=== PATIENT | male | born 1950 | race Caucasian/White ===

== ENCOUNTER 2016-10-17 09:39 | Inpatient (IN) | payer MEDICARE, OTHER ==
[2016-10-17] VITALS (16 sets, daily range): BP systolic 117–164; BP diastolic 60–90; PULSE 16–110; RESP 18–24; TEMP 97.7–98.8; O2SAT 88–95
[~2016-10-17] VITALS: Ht 190.5 cm; Wt 144.4 kg
[2016-10-17] MEDS ORDERED: SODIUM CHLORIDE 0.9% FLUSH 5 ML FLUSH IVF PRN ×2 (10:00)
[2016-10-17] MEDS ORDERED: NAPR220T95 PO (10:10)
[2016-10-17] MEDS ORDERED: ASPI81CH37 CHEW (10:10)
[2016-10-17] MEDS ORDERED: TELM40 PO (10:10)
[2016-10-17 10:41] LABS: AUTOMATED NEUTROPHIL # 5.1 TH/MM3 (1.8-7.7); BASOPHIL % 0.6 % (0.0-2.0); EOSINOPHIL # 0.2 TH/MM3 (0-0.4); EOSINOPHIL % 2.5 % (0.0-4.0); HEMATOCRIT 45.5 % (39.0-51.0); HEMO FLAGS DIFF FINAL; LYMPH % 11.7 % (9.0-44.0); LYMPHOCYTE # 0.8 TH/MM3 (1.0-4.8); MEAN CELL VOLUME 90.4 FL (80.0-100.0); MEAN CORPUSCULAR HEMOGLOBIN 31.1 PG (27.0-34.0); MEAN CORPUSCULAR HGB CONC 34.3 % (32.0-36.0); MONO % 10.1 % (0.0-8.0); NEUT % 75.1 % (16.0-70.0); PLATELET COUNT 188 TH/MM3 (150-450); RED BLOOD COUNT 5.03 MIL/MM3 (4.50-5.90); RED CELL DISTRIBUTION WIDTH 14.8 % (11.6-17.2); WHITE BLOOD COUNT 6.8 TH/MM3 (4.0-11.0)
[2016-10-17 10:42] LABS: APTT (PATIENT) 28.5 SEC (24.3-30.1); PROTHROMBIN TIME - PATIENT 11.6 SEC (9.8-11.6)
[2016-10-17 11:00] LABS: I-STAT POTASSIUM 4.6 MMOL/L (3.5-4.9)
--- NOTE | 2016-10-17 11:09 | PD ---
HPI Chief Complaint: Respiratory Symptoms Time Seen by Provider: 09:52 Travel History International Travel<30 days: No Contact w/Intl Traveler<30days: No Traveled to known affect area: No History of Present Illness HPI 65-year-old male presents emergency Department with progressive shortness of breath for the past month. Patient states he got fairly significant this morning a short of breath with only a few steps. Patient does have a history of knee replacement in June, his states that his been fairly sedentary since the surgery now that he is on fdc. Patient denies any cough fever symptoms denies any chest pain. Denies any leg swelling. Patient denies history of blood clots in his legs or his chest PFSH Past Medical History Diminished Hearing: No Hypertension: Yes Influenza Vaccination: Yes Social History Alcohol Use: No Tobacco Use: No Substance Use: No Allergies-Medications (Allergen,Severity, Reaction): Coded Allergies: No Known Allergies (Unverified , 10/17/16) Reported Meds & Prescriptions Reported Meds & Active Scripts Active Reported Micardis (Telmisartan) 40 Mg Tab 40 Mg PO DAILY Aleve (Naproxen Sodium) 220 Mg Tab 440 Mg PO BID PRN Aspirin Low Dose (Aspirin) 81 Mg Chew 81 Mg CHEW DAILY Review of Systems Except as stated in HPI: all other systems reviewed are Neg Physical Exam Narrative GENERAL: Well-developed well-nourished moderately short of breath. SKIN: Warm and dry. HEAD: Atraumatic. Normocephalic. EYES: Pupils equal and round. No scleral icterus. No injection or drainage. ENT: No nasal bleeding or discharge. Mucous membranes pink and moist. NECK: Trachea midline. No JVD. CARDIOVASCULAR: Regular rate and rhythm. No murmur appreciated. RESPIRATORY: No accessory muscle use. Clear to auscultation. Breath sounds equal bilaterally. Tachypneic. GASTROINTESTINAL: Abdomen soft, non-tender, nondistended. Hepatic and splenic margins not palpable. MUSCULOSKELETAL: No obvious deformities. No clubbing. No cyanosis. Patient has significant right-sided calf swelling as well as a vascular congestion color. There is good perfusion lower extremity. 2+ bilateral equal pulses in all 4 extremity's. NEUROLOGICAL: Awake and alert. No obvious cranial nerve deficits. Motor grossly within normal limits. Normal speech. PSYCHIATRIC: Appropriate mood and affect; insight and judgment normal. Data Data Last Documented VS Vital Signs Date Time Temp Pulse Resp B/P Pulse Ox O2 Delivery O2 Flow Rate FiO2 10/17/16 11:15 98 18 146/90 95 Nasal Cannula 2 10/17/16 10:05 97.7 Orders Electrocardiogram (10/17/16 09:59) Complete Blood Count With Diff (10/17/16 09:59) Comprehensive Metabolic Panel (10/17/16 09:59) Chest, Single Ap (10/17/16 09:59) Ecg Monitoring (10/17/16 09:59) Iv Access Insert/Monitor (10/17/16 09:59) Oximetry (10/17/16 09:59) Oxygen Administration (10/17/16 09:59) Sodium Chloride 0.9% Flush (Ns Flush) (10/17/16 10:00) Ckmb (Isoenzyme) Profile (10/17/16 09:59) Magnesium (Mg) (10/17/16 09:59) Prothrombin Time / Inr (Pt) (10/17/16 09:59) Act Partial Throm Time (Ptt) (10/17/16 09:59) Troponin I (10/17/16 09:59) Bilateral Bp Monitoring (10/17/16 09:59) Sodium Chloride 0.9% Flush (Ns Flush) (10/17/16 10:00) Ct Pulmonary Angiogram (10/17/16 09:59) Us Leg Venous Doppler (10/17/16 09:59) I-Stat Creatinine (10/17/16 10:38) I-Stat Profile (10/17/16 10:38) Iohexol 350 Inj (Omnipaque 350 Inj) (10/17/16 11:41) Admit Order (Ed Use Only) (10/17/16 ) Labs Laboratory Tests Test 10/17/16 10/17/16 10:05 10:45 White Blood Count 6.8 TH/MM3 Red Blood Count 5.03 MIL/MM3 Hemoglobin 15.6 GM/DL Hematocrit 45.5 % Mean Corpuscular Volume 90.4 FL Mean Corpuscular Hemoglobin 31.1 PG Mean Corpuscular Hemoglobin 34.3 % Concent Red Cell Distribution Width 14.8 % Platelet Count 188 TH/MM3 Mean Platelet Volume 9.5 FL Neutrophils (%) (Auto) 75.1 % Lymphocytes (%) (Auto) 11.7 % Monocytes (%) (Auto) 10.1 % Eosinophils (%) (Auto) 2.5 % Basophils (%) (Auto) 0.6 % Neutrophils # (Auto) 5.1 TH/MM3 Lymphocytes # (Auto) 0.8 TH/MM3 Monocytes # (Auto) 0.7 TH/MM3 Eosinophils # (Auto) 0.2 TH/MM3 Basophils # (Auto) 0.0 TH/MM3 CBC Comment DIFF FINAL Differential Comment Prothrombin Time 11.6 SEC Prothromb Time International 1.0 RATIO Ratio Activated Partial 28.5 SEC Thromboplast Time Sodium Level 137 MEQ/L Potassium Level 4.2 MEQ/L Chloride Level 103 MEQ/L Carbon Dioxide Level 23.6 MEQ/L Anion Gap 10 MEQ/L Blood Urea Nitrogen 23 MG/DL Creatinine 1.25 MG/DL Estimat Glomerular Filtration 58 ML/MIN Rate Random Glucose 200 MG/DL Calcium Level 8.5 MG/DL Magnesium Level 2.1 MG/DL Total Bilirubin 0.9 MG/DL Aspartate Amino Transf 18 U/L (AST/SGOT) Alanine Aminotransferase 35 U/L (ALT/SGPT) Alkaline Phosphatase 100 U/L Total Creatine Kinase 60 U/L Troponin I 0.06 NG/ML Total Protein 7.5 GM/DL Albumin 3.8 GM/DL Bedside Hemoglobin 15.0 G/DL Bedside Hematocrit 44.0 % Bedside Sodium 138 MMOL/L Bedside Potassium 4.6 MMOL/L Bedside Chloride 103 MMOL/L Bedside Blood Urea Nitrogen 23 MG/DL Bedside Creatinine 0.9 MG/DL Bedside Glucose 197 MG/DL [facility] Medical Decision Making Medical Screen Exam Complete: Yes Emergency Medical Condition: Yes Interpretation(s) EKG shows normal sinus rhythm with a normal axis and normal R-wave progression. There are ST depression in V5 and V6 without any elevations. There is no right heart strain pattern on this EKG. This an abnormal EKG. Differential Diagnosis Hypoxic respiratory failure, Pulmonary embolus, pneumonia, CHF, COPD. Narrative Course Patient 65-year-old male presents emergency department with cough high clinical suspicion for pulmonary embolism. Patient has had DVT study performed prior to having CT pulmonary was in which is positive. I-STAT creatinines were obtained to experience going to CAT scan as patient may need interventional radiology pending on the size of pulmonary embolism. Initial saturation of 88 on room air in the waiting room, he is up to 95 on 4 L nasal cannula. Critical Care Narrative Critical Care: The total critical care time was 35 minutes. Time to perform other separately billable procedures was not included in the critical care time. Time spent consulting radiology, interventional radiology, and manager operations and procurement. TPA was considered but risks outweigh benefits. Heparin dosing. Risks to patient is and disability. Diagnosis Primary Impression: Acute respiratory failure with hypoxia Additional Impressions: Pulmonary embolism Qualified Code: I26.92 - Acute saddle pulmonary embolism without acute cor pulmonale DVT (deep venous thrombosis) Qualified Code: I82.411 - Acute deep vein thrombosis (DVT) of femoral vein of right lower extremity Admitting Information Admitting Physician Requests: Admit Condition: Andres Woodson MD Oct 17, 2016 11:09
--- NOTE | 2016-10-17 11:17 | RADRPT ---
EXAM DATE/TIME: 10/17/2016 10:19 [facility] COMPARISON: No previous studies available for comparison. INDICATIONS : Pain and swelling in right lower extremity. MEDICAL HISTORY : Hypertension. Short of breath. SURGICAL HISTORY : Total knee replacement, right. ENCOUNTER: Initial ACUITY: 4 - 6 months PAIN SCORE: 5/10 LOCATION: Right leg. TECHNIQUE: Venous ultrasound of the leg was performed from the inguinal ligament to the proximal calf. Real-candida e, color Doppler and spectral tracing, compression and augmentation techniques were used. FINDINGS: There is acute appearing thrombus with enlarged veins at the right common femoral and right popliteal veins. The femoral vein and posterior tibial veins and greater saphenous vein are patent. CONCLUSION: Acute thrombus at the right common femoral and popliteal veins. This is nearly totally occlusive. Jax Fragoso MD on October 17, 2016 at 11:12 Board Certified Radiologist. This report was verified electronically.
--- NOTE | 2016-10-17 11:18 | RADRPT ---
EXAM DATE/TIME: 10/17/2016 10:56 [facility] COMPARISON: No previous studies available for comparison. INDICATIONS : Wheezing. Short of breath. MEDICAL HISTORY : None. SURGICAL HISTORY : None. ENCOUNTER: Initial ACUITY: 1 week PAIN SCORE: 0/10 LOCATION: Bilateral chest FINDINGS: A single view of the chest demonstrates the lungs to be symmetrically aerated without evidence of mas s, infiltrate or effusion. The cardiomediastinal contours are unremarkable. Osseous structures are intact. CONCLUSION: No acute disease. Jax Fragoso MD on October 17, 2016 at 11:16 Board Certified Radiologist. This report was verified electronically.
[2016-10-17 11:21] LABS: ALKALINE PHOSPHATASE 100 U/L (45-117); AST (GOT) 18 U/L (15-37); BLOOD UREA NITROGEN 23 MG/DL (7-18); GLOMERULAR FILTRATION RATE 58 ML/MIN (>89); MAGNESIUM 2.1 MG/DL (1.5-2.5)
[2016-10-17 11:22] LABS: ALT (GPT) 35 U/L (12-78); ANION GAP 10 MEQ/L (5-15); BICARBONATE 23.6 MEQ/L (21.0-32.0); CHLORIDE 103 MEQ/L (98-107); CREATINE KINASE 60 U/L (39-308); POTASSIUM 4.2 MEQ/L (3.5-5.1); SODIUM (NA) 137 MEQ/L (136-145); TOTAL BILIRUBIN ADULT 0.9 MG/DL (0.2-1.0)
[2016-10-17] MEDS ORDERED: IOHEXOL 350 MG/ML 10 ML VIAL (for RAD DIAG) IV ONE (11:41)
--- NOTE | 2016-10-17 11:55 | RADRPT ---
EXAM DATE/TIME: 10/17/2016 11:19 [facility] COMPARISON: No previous studies available for comparison. INDICATIONS : Dyspnea and decreased oxygen saturation IV CONTRAST: 66 cc Omnipaque 350 (iohexol) IV RADIATION DOSE: 23.28 CTDIvol (mGy) MEDICAL HISTORY : Hypertension. SURGICAL HISTORY : Total knee replacement, right. ENCOUNTER: Initial ACUITY: 1 day PAIN SCALE: 0/10 LOCATION: chest TECHNIQUE: Volumetric scanning of the chest was performed using a pulmonary embolism protocol MIP images were re constructed. Using automated exposure control and adjustment of the mA and/or kV according to patien t size, radiation dose was kept as low as reasonably achievable to obtain optimal diagnostic quality images. FINDINGS: There is fairly extensive thrombus identified in the pulmonary arteries bilaterally. This includes c entral embolus seen at the distal bifurcation of the main pulmonary artery. The thrombus appears more prominent in the right side extending to areas involving the right upper lobe, right middle lobe and right lower lobe. Ther e is some thrombus seen in the left upper lobe and left lower lobes although the thrombus burden is less on the left than the right. The lungs are grossly clear. Mediastinal structures are grossly intact. CONCLUSION: Fairly extensive pulmonary emboli. Jax Fragoso MD on October 17, 2016 at 11:46 Board Certified Radiologist. This report was verified electronically.
[2016-10-17] MEDS ORDERED: POTASSIUM CHLOR 40 MEQ PREMIX 100 ML IV PRN ×2 (12:30)
[2016-10-17] MEDS ORDERED: MAGNESIUM SULFATE INJ 4 GM in SODIUM CHLORIDE 0.9% INJ 92 ML IV PRN (12:30)
[2016-10-17] MEDS ORDERED: SODIUM CHLORIDE 0.9% FLUSH 5 ML FLUSH IV FLUSH PRN (12:30)
[2016-10-17] MEDS ORDERED: POTASSIUM CHLOR 20 MEQ PREMIX 100 ML IV PRN ×2 (12:30)
[2016-10-17] MEDS ORDERED: GLUCAGON 1 MG/ML VIAL OTHER PRN (12:30)
[2016-10-17] MEDS ORDERED: SODIUM PHOSPHATE INJ 30 MMOL in SODIUM CHLOR 0.9% 250 ML INJ 240 ML IV PRN (12:30)
[2016-10-17] MEDS ORDERED: RESP: ALBUTEROL 2.5 MG/IPRATROPIUM 0.5 MG NEB (PRN) INH (12:30)
[2016-10-17] MEDS ORDERED: CHLORHEXIDINE GLUCONATE 2 % 1 PACK (2 CLOTHS) TOP PRN (12:30)
[2016-10-17] MEDS ORDERED: MAGNESIUM SULFATE INJ 2 GM in SODIUM CHLORIDE 0.9% INJ 96 ML IV PRN (12:30)
[2016-10-17] MEDS ORDERED: MAGNESIUM OXIDE 400 MG TAB PO PRN (12:30)
[2016-10-17] MEDS ORDERED: POTASSIUM PHOSPHATE MONOBASIC 500 MG TAB PO PRN (12:30)
[2016-10-17] MEDS ORDERED: DEXTROSE 50% IN WATER 50 ML VIAL(D50) IV PUSH PRN (12:30)
[2016-10-17] MEDS ORDERED: MISCELLANEOUS NURSING INFORMATION XX SCH (12:30)
[2016-10-17] MEDS ORDERED: POTASSIUM PHOSPHATE MONOBASIC 500 MG TAB PO/TUBE PRN (12:30)
[2016-10-17] MEDS ORDERED: POTASSIUM PHOSPHATE INJ 30 MMOL in SODIUM CHLOR 0.9% 250 ML INJ 250 ML IV PRN (12:30)
[2016-10-17] MEDS ORDERED: ONDANSETRON HCL 4 MG/2 ML VIAL IV PRN (12:30)
[2016-10-17] MEDS ORDERED: ACETAMINOPHEN 325 MG TAB PO PRN (12:30)
[2016-10-17] MEDS ORDERED: HEPARIN SODIUM - IV 10,000 UNITS/10 ML VIAL IV ONE ×2 (12:30→12:45)
--- NOTE | 2016-10-17 12:36 | HHI.HP ---
HPI Service Critical Care Medicine Primary Care Physician Non-Staff Admission Diagnosis Saddle Pulmonary Embolism, DVT Diagnosis: Travel History International Travel<30 Days: No Contact w/Intl Traveler <30 Da: No Traveled to Known Affected Are: No History of Present Illness 65-year-old male that presented to the ED with progressive dyspnea. for the past month. The patient is S/P right total knee arthroplasty June 2016. At that point in time, the patient was prescribed and instructed to take 325 mg aspirin twice a day which he complied with until August 2016. In August 2016 , the patient began his normal regimen of 81 mg aspirin daily. The patient subsequently went on a few long car trips September 2016 to [place] and [facility], and has a sedentary lifestyle in [place]. The patient was noted to begin to have symptoms at that time post traveling which has progressively worsened early this a.m.. The patient presented to an outpatient emergency center and then was sent to [facility] ED. The patient was noted to be dyspneic with a room air O2 sat of 88%, O2 saturation improved with 2 L nasal cannula to 9596%. The patient was hemodynamically stable SBP 140's. Imaging studies were performed ultrasound revealing a right common femoral and popliteal nearly totally occlusive DVT's. CT PE protocol was noted fairly extensive thrombosis bilateral pulmonary arteries with central embolus right upper,right middle and right lower lobe ,as well as left upper and and lower lobes, left greater than right. The patient's respiratory status progressively worsened requiring him to present to an emergency room the patient has remained hemodynamically stable , no accessory muscle use ,no dyspnea on 2 L nasal cannula with O2 saturation 95 %. Interventional radiology was consult by , and due to the bilateral presentation of pulmonary embolus no intervention was considered. Critical care medicine is consult for management and treatment of bilateral pulmonary embolus. History PFSH Past Medical History Diminished Hearing: No Hypertension: Yes Influenza Vaccination: Yes Social History Alcohol Use: No Tobacco Use: No Substance Use: No Allergies-Medications Allergies-Medications (Allergen,Severity, Reaction): Coded Allergies: No Known Allergies (Unverified , 10/17/16) Reported Meds & Prescriptions Reported Meds & Active Scripts Active Reported Micardis (Telmisartan) 40 Mg Tab 40 Mg PO DAILY Aleve (Naproxen Sodium) 220 Mg Tab 440 Mg PO BID PRN Aspirin Low Dose (Aspirin) 81 Mg Chew 81 Mg CHEW DAILY ROS Review of Systems Except as stated in HPI: all other systems reviewed are Neg Past Family Social History Allergies: Coded Allergies: No Known Allergies (Unverified , 10/17/16) Physical Exam Vital Signs Vital Signs Date Time Temp Pulse Resp B/P Pulse Ox O2 Delivery O2 Flow Rate FiO2 10/17/16 11:15 98 18 146/90 95 Nasal Cannula 2 10/17/16 11:09 142/66 10/17/16 11:08 132/60 10/17/16 10:13 100 22 134/84 94 Nasal Cannula 3 139/84 10/17/16 10:05 97.7 98 22 143/85 94 Nasal Cannula 2 10/17/16 10:05 94 Nasal Cannula 2 10/17/16 09:58 100 22 92 Nasal Cannula 3 10/17/16 09:50 97.7 100 24 143/85 88 10/17/16 09:44 110 22 164/79 88 Room Air Physical Exam GENERAL: Well-developed well-nourished obese male, currently on 2 L nasal cannula in no acute distress SKIN: Warm and dry. HEAD: Atraumatic. Normocephalic. EYES: Pupils equal and round. No scleral icterus. No injection or drainage. ENT: No nasal bleeding or discharge. Mucous membranes pink and moist. NECK: Trachea midline. No JVD. CARDIOVASCULAR: Normal rate, regular rhythm. RESPIRATORY: No accessory muscle use. Clear to auscultation. Breath sounds equal bilaterally. GASTROINTESTINAL: Abdomen soft, protuberant, non-tender, nondistended. No guarding. MUSCULOSKELETAL: Extremities without clubbing, cyanosis, or edema. No obvious deformities. NEUROLOGICAL: Awake and alert. RASS 0. No gross focal/sensory deficits. Follows commands in all 4 extremities. Laboratory Laboratory Tests Test 10/17/16 10/17/16 10:05 10:45 White Blood Count 6.8 Red Blood Count 5.03 Hemoglobin 15.6 Hematocrit 45.5 Mean Corpuscular Volume 90.4 Mean Corpuscular Hemoglobin 31.1 Mean Corpuscular Hemoglobin 34.3 Concent Red Cell Distribution Width 14.8 Platelet Count 188 Mean Platelet Volume 9.5 Neutrophils (%) (Auto) 75.1 Lymphocytes (%) (Auto) 11.7 Monocytes (%) (Auto) 10.1 Eosinophils (%) (Auto) 2.5 Basophils (%) (Auto) 0.6 Neutrophils # (Auto) 5.1 Lymphocytes # (Auto) 0.8 Monocytes # (Auto) 0.7 Eosinophils # (Auto) 0.2 Basophils # (Auto) 0.0 CBC Comment DIFF FINAL Differential Comment Prothrombin Time 11.6 Prothromb Time International 1.0 Ratio Activated Partial 28.5 Thromboplast Time Sodium Level 137 Potassium Level 4.2 Chloride Level 103 Carbon Dioxide Level 23.6 Anion Gap 10 Blood Urea Nitrogen 23 Creatinine 1.25 Estimat Glomerular Filtration 58 Rate Random Glucose 200 Calcium Level 8.5 Magnesium Level 2.1 Total Bilirubin 0.9 Aspartate Amino Transf 18 (AST/SGOT) Alanine Aminotransferase 35 (ALT/SGPT) Alkaline Phosphatase 100 Total Creatine Kinase 60 Troponin I 0.06 Total Protein 7.5 Albumin 3.8 Bedside Hemoglobin 15.0 Bedside Hematocrit 44.0 Bedside Sodium 138 Bedside Potassium 4.6 Bedside Chloride 103 Bedside Blood Urea Nitrogen 23 Bedside Creatinine 0.9 Bedside Glucose 197 Result Diagram: 10/17/16 1005 10/17/16 1005 Imaging Last Impressions Lower Extremity Ultrasound 10/17/16958 Signed Impressions: Service Date/Time: Monday, October 17, 2016 10:19 - CONCLUSION: Acute thrombus at the right common femoral and popliteal veins. This is nearly totally occlusive. Jax Fragoso MD Chest X-Ray 10/17/16958 Signed Impressions: Service Date/Time: Monday, October 17, 2016 10:56 - CONCLUSION: No acute disease. Jax Fragoso MD CT Angiography 10/17/1620 Signed Impressions: Service Date/Time: Monday, October 17, 2016 11:19 - CONCLUSION: Fairly extensive pulmonary emboli. Jax Fragoso MD Septic Shock Reassessment Peripheral Pulses: Bounding Right Radial Bounding Left Radial Bounding Right Dorsalis Pedis Bounding Left Dorsalis Pedis Capillary Refill: Brisk Assessment and Plan Assessment and Plan Plan by systems: Neurologic: Pain Status post right total knee arthroplasty-acetaminophen 650 mg 6 hours when necessary Neurochecks per ICU protocol Respiratory: Bilateral pulmonary embolus CT PEfairly extensive thrombus pulmonary arteries bilateral. Includes central embolus right upper and right middle right lower lobe. Thrombus left upper and left lower lobe left greater than right. Begin heparin load 10,000 units, IV begin heparin infusion 18 units/kilogram/ hourPE protocol Monitor PTT per PE protocol Cardiovascular: Maintain MAP > 65 mmHg greater than 65 Obtain stat echocardiogram Normotensive systolic blood pressure 140s Obtain repeat EKG Renal: -- Strict I/Os FEN/GI: Monitor BMP Heart healthy diet Bowel regimen Heme/ID: Monitor CBC Endocrine: Sliding-scale insulin per ICU protocol -- SSI Prophylaxis: GI Prophylaxis Pepcid twice a day DVT Prophylaxis -- No SCDs Heparin infusion Lines: Peripheral IVs 2. Central line if indicated Dispo: my billing statement This patient remains critically ill with one or more organ systems which are or may become a threat to life. I have spent in excess of 51 minutes discontinuously in the care and management of this patient. This time is exclusive of procedures, and includes, but is not limited to, evaluation of the patient, review of the medical record, discussions with family, consultants, nursing staff, or respiratory therapy, and documentation in the medical record. Code Status Full Discussed Condition With Patient, patient's , MANNEQUIN MOLDER at bedside Marcelina Gupta MD Oct 17, 2016 12:36
[2016-10-17] MEDS: HEPARIN-D5W INJ 250 ML IV SCH ×2 (12:54→14:03)
[2016-10-17] MEDS: SODIUM CHLOR 0.9% 1000 ML INJ 1,000 ML IV SCH (13:56)
[2016-10-17] MEDS: INSULIN NovoLIN REGULAR SUPPLEMENTAL SCALE SQ SCH ×2 (16:00→22:13)
[2016-10-17] MEDS ORDERED: HEPARIN SODIUM - IV 10,000 UNITS/10 ML VIAL IV PRN (18:30)
[2016-10-17] MEDS ORDERED: SODIUM CHLORIDE 0.9% FLUSH 5 ML FLUSH IV FLUSH SCH (21:00)
--- NOTE | 2016-10-17 22:00 | EC ---
Study Study Date:10/17/2016 STUDY CONCLUSIONS SUMMARY - Left ventricle: The cavity size was normal. Wall thickness was increased in a pattern of mild LVH. Systolic function was normal. The estimated ejection fraction was 55%. Wall motion was normal; there were no regional wall motion abnormalities. - Right ventricle: The cavity size was moderately dilated. Wall thickness was increased. - Tricuspid valve: Mild regurgitation. If LV function is below 40, please consider prescribing an ACEI or ARB or document rationale for non-use. PROCEDURE DATA STUDY STATUS: Elective. Procedure: Transthoracic echocardiography. Image quality was good. Scanning was performed from the parasternal, apical, and subcostal acoustic windows. Study completion: The patient tolerated the procedure well. Transthoracic echocardiography. M-mode, complete 2D, complete spectral Doppler, and color Doppler. Patient status: Inpatient. CARDIAC ANATOMY LEFT VENTRICLE: The cavity size was normal. Wall thickness was increased in a pattern of mild LVH. Systolic function was normal. The estimated ejection fraction was 55%. Wall motion was normal; there were no regional wall motion abnormalities. AORTIC VALVE: Trileaflet; normal thickness leaflets. Doppler: Transvalvular velocity was within the normal range. There was no stenosis. No regurgitation. AORTA: Aortic root: The aortic root was normal in size. MITRAL VALVE: Structurally normal valve. Doppler: Transvalvular velocity was within the normal range. There was no evidence for stenosis. No regurgitation. LEFT ATRIUM: The atrium was normal in size. RIGHT VENTRICLE: The cavity size was moderately dilated. Wall thickness was increased. PULMONIC VALVE: Doppler: Transvalvular velocity was within the normal range. There was no evidence for stenosis. No regurgitation. TRICUSPID VALVE: Structurally normal valve. Doppler: Transvalvular velocity was within the normal range. Mild regurgitation. PULMONARY ARTERY: The main pulmonary artery was normal-sized. Systolic pressure was within the normal range. RIGHT ATRIUM: The atrium was normal in size. PERICARDIUM: There was no pericardial effusion. SYSTEMIC VEINS: Inferior vena cava: The vessel was normal in size. BASIC MEASUREMENTS ADULT Normal Left ventricle LV internal dimension, ED, chordal level, *42.9 mm 43-52 PLAX LV internal dimension, ES, chordal level, 32.7 mm 23-38 PLAX Fractional shortening, chordal level, PLAX *24 % >29 LV posterior wall thickness, ED 8.42 mm IVS/LVPW ratio, ED *1.66 <1.3 Ventricular septum Septal thickness, ED 14 mm Aortic valve Leaflet separation 22 mm 15-26 Left atrium Anterior-posterior dimension 34 mm Right ventricle RV internal dimension, ED, PLAX 34.1 mm 19-38 BASIC MEASUREMENTS ADULT Normal Aortic valve Leaflet separation 22 mm 15-26 Aorta Root diameter, ED 34 mm 20-37 DOPPLER MEASUREMENTS ADULT Normal Mitral valve Peak E-wave velocity 54.3 cm/s Peak A-wave velocity 70.1 cm/s Peak E/A ratio 0.8 Tricuspid valve Regurgitant peak velocity 289 cm/s Peak RV-RA gradient, S 33 mm Hg Maximal regurgitant velocity 289 cm/s LEGEND: Mean values are shown as u=mean value. Asterisk (*) del rosario values outside specified normal range. Prepared and signed by Nabeel Macias [id number]
[2016-10-17] MEDS: DOCUSATE SODIUM 50 MG/SENNA 8.6 MG TAB PO SCH (22:07)
[2016-10-17] MEDS: FAMOTIDINE 20 MG TAB PO SCH (22:08)
[2016-10-18] VITALS (14 sets, daily range): BP systolic 121–150; BP diastolic 65–86; PULSE 64–93; RESP 15–24; TEMP 97.9–98.8; O2SAT 93–96
[2016-10-18] MEDS: HEPARIN-D5W INJ 250 ML IV SCH ×2 (00:20→18:08)
[2016-10-18 01:08] LABS: APTT (PATIENT) 39.7 SEC (24.3-30.1)
[2016-10-18] MEDS: RESP: ALBUTEROL 2.5 MG/IPRATROPIUM 0.5 MG NEB (SCH) INH ×4 (03:26→21:32)
[2016-10-18] MEDS: CHLORHEXIDINE GLUCONATE 2 % 1 PACK (2 CLOTHS) TOP SCH (04:00)
[2016-10-18] MEDS: INSULIN NovoLIN REGULAR SUPPLEMENTAL SCALE SQ SCH ×4 (07:25→20:26)
[2016-10-18] MEDS: FAMOTIDINE 20 MG TAB PO SCH ×2 (08:00→20:26)
[2016-10-18] MEDS: DOCUSATE SODIUM 50 MG/SENNA 8.6 MG TAB PO SCH ×2 (08:00→20:26)
[2016-10-18] MEDS: SODIUM CHLOR 0.9% 1000 ML INJ 1,000 ML IV SCH (08:01)
[2016-10-18 09:25] LABS: APTT (PATIENT) 40.6 SEC (24.3-30.1)
--- NOTE | 2016-10-18 11:10 | HHI.CCPN ---
Subjective Remarks/Hospital Course 65-year-old male that presented to the ED with progressive dyspnea. for the past month. The patient is S/P right total knee arthroplasty June 2016. At that point in time, the patient was prescribed and instructed to take 325 mg aspirin twice a day which he complied with until August 2016. In August 2016 , the patient began his normal regimen of 81 mg aspirin daily. The patient subsequently went on a few long car trips September 2016 to [facility] and [facility], and has a sedentary lifestyle in [place]. The patient was noted to begin to have symptoms at that time post traveling which has progressively worsened early this a.m.. The patient presented to an outpatient emergency center and then was sent to [facility] ED. The patient was noted to be dyspneic with a room air O2 sat of 88%, O2 saturation improved with 2 L nasal cannula to 9596%. The patient was hemodynamically stable SBP 140's. Imaging studies were performed ultrasound revealing a right common femoral and popliteal nearly totally occlusive DVT's. CT PE protocol was noted fairly extensive thrombosis bilateral pulmonary arteries with central embolus right upper,right middle and right lower lobe ,as well as left upper and and lower lobes, left greater than right. The patient's respiratory status progressively worsened requiring him to present to an emergency room the patient has remained hemodynamically stable , no accessory muscle use ,no dyspnea on 2 L nasal cannula with O2 saturation 95 %. Interventional radiology was consult by , and due to the bilateral presentation of pulmonary embolus no intervention was considered. Critical care medicine is consult for management and treatment of bilateral pulmonary embolus. Subjective: 10/18: No issues overnight. Systolic blood pressure remained in the 130s to 140s. Heart rate in the 70s. Troponin level during the evening was noted to be increased from 0.062 0.10. BNP was obtained 231. Echo was performed ejection fraction 55%, the RV was moderately dilated tricuspid valves was noted to have mild regurgitation. Discussed with patient the risk and benefits for low-dose TPA at this time, to include the risk of hemorrhage and bleeding/ hemorrhage approximately 7%. The patient's major surgery was of right total knee arthroplasty done in June 2016, other major surgeries since then. Patient denies any risks/history or trauma for bleeding. Tentative plan to initiate low-dose TPA. Objective Vital Signs Date Time Temp Pulse Resp B/P Pulse Ox O2 Delivery O2 Flow Rate FiO2 10/18/16 10:00 92 10/18/16 09:42 96 Nasal Cannula 3.00 10/18/16 08:00 98.0 18 128/82 Intake and Output 10/17/16 10/17/16 10/18/16 08:00 16:00 00:00 Intake Total 535 ml 756 ml Output Total 700 ml 600 ml Balance -165 ml 156 ml Result Diagram: 10/17/16 1005 10/17/16 1005 Imaging Last Impressions Lower Extremity Ultrasound 10/17/16958 Signed Impressions: Service Date/Time: Monday, October 17, 2016 10:19 - CONCLUSION: Acute thrombus at the right common femoral and popliteal veins. This is nearly totally occlusive. Jax Fragoso MD Chest X-Ray 10/17/16958 Signed Impressions: Service Date/Time: Monday, October 17, 2016 10:56 - CONCLUSION: No acute disease. Jax Fragoso MD CT Angiography 10/17/16958 Signed Impressions: Service Date/Time: Monday, October 17, 2016 11:19 - CONCLUSION: Fairly extensive pulmonary emboli. Jax Fragoso MD Objective Remarks GENERAL: Well-developed well-nourished obese male, currently on 2 L nasal cannula in no acute distress SKIN: Warm and dry. HEAD: Atraumatic. Normocephalic. EYES: Pupils equal and round. No scleral icterus. No injection or drainage. ENT: No nasal bleeding or discharge. Mucous membranes pink and moist. NECK: Trachea midline. No JVD. CARDIOVASCULAR: Normal rate, regular rhythm. RESPIRATORY: No accessory muscle use. Clear to auscultation. Breath sounds equal bilaterally. GASTROINTESTINAL: Abdomen soft, protuberant, non-tender, nondistended. No guarding. MUSCULOSKELETAL: Extremities without clubbing, cyanosis, or edema. No obvious deformities. NEUROLOGICAL: Awake and alert. RASS 0. No gross focal/sensory deficits. Follows commands in all 4 extremities. A/P Assessment and Plan Plan by systems: Neurologic: Pain Status post right total knee arthroplasty-acetaminophen 650 mg 6 hours when necessary Neurochecks per ICU protocol Respiratory: Bilateral pulmonary embolus CT PEfairly extensive thrombus pulmonary arteries bilateral. Includes central embolus right upper and right middle right lower lobe. Thrombus left upper and left lower lobe left greater than right. Begin heparin load 10,000 units, IV begin heparin infusion 18 units/kilogram/ hourPE protocol Monitor PTT per PE protocol 10/18-will initiate low-dose TPA 10 mg bolus followed by 40 mg. Will decrease current heparin infusion to 1000 units per hour, and continue to monitor per PTT /heparin protocol Cardiovascular: Maintain MAP > 65 mmHg greater than 65 Obtain stat echocardiogram Normotensive systolic blood pressure 130s Echo 10/17-ejection fraction 55% RV mildly dilated tricuspid valve mild regurgitation, Renal: -- Strict I/Os FEN/GI: Monitor BMP Heart healthy diet Bowel regimen Heme/ID: Monitor CBC Endocrine: Sliding-scale insulin per ICU protocol -- SSI Prophylaxis: GI Prophylaxis Pepcid twice a day DVT Prophylaxis -- No SCDs Heparin infusion Lines: Peripheral IVs 2. Central line if indicated Dispo: Extensive discussion with patient regarding absolute contraindications, relative contraindications were thoroughly explored and denied. Risk and benefits were discussed with the patient and his . The patient has made a decision to proceed with low-dose tPA at this time. The patient will have heparin infusion decreased to 1000 units an hour at the initiation of TPA. He will receive TPA 10 mg over 1 minute, followed by 40 mg over 2 hours concurrently with heparin infusion at 1000 units an hour. The patient will then repeat follow the heparin PTT protocol. APTT will be obtained 6 hours post TPA administration and continued PTT/ Heparin protocol. The plan is for transition to Coumadin via pharmacy consultation post 48 hours of tPA administration. I also notified [facility],(patient's surgeon) Dr. Alonzo Mullins [phone]. my billing statement This patient remains critically ill with one or more organ systems which are or may become a threat to life. I have spent in excess of 47 minutes discontinuously in the care and management of this patient. This time is exclusive of procedures, and includes, but is not limited to, evaluation of the patient, review of the medical record, discussions with family, consultants, nursing staff, or respiratory therapy, and documentation in the medical record. Physician Marcelina Couch MD Oct 18, 2016 11:10
[2016-10-18] MEDS ORDERED: ALTEPLASE DRIP IV ONE (12:30)
[2016-10-18] MEDS ORDERED: ALTEPLASE IV ONE (12:30)
--- NOTE | 2016-10-18 14:04 | EKG ---
Date Performed: 10/17/2016 Time Performed: 15:34:16 PTAGE: 65 years EKG: Sinus rhythm POSSIBLE ANTEROLATERAL MYOCARDIAL INFARCTION , OF INDETERMINATE AGE ABNORMAL ECG PREVIOUS TRACING : 10/17/2016 10.04 DOCTOR: Toni Zazueta Interpretating Date/Time 10/18/2016 13:57:08
--- NOTE | 2016-10-18 14:12 | EKG ---
Date Performed: 10/17/2016 Time Performed: 10:04:41 PTAGE: 65 years EKG: Sinus rhythm NONSPECIFIC ST & T-WAVE ABNORMALITY ABNORMAL ECG NO PREVIOUS TRACING DOCTOR: Toni Zazueta Interpretating Date/Time 10/18/2016 14:02:18
[2016-10-18 21:16] LABS: APTT (PATIENT) 29.4 SEC (24.3-30.1)
[2016-10-18] MEDS: HEPARIN SODIUM - IV 10,000 UNITS/10 ML VIAL IV PRN (21:25)
[2016-10-19] VITALS (7 sets, daily range): BP systolic 138–147; BP diastolic 78–83; PULSE 65–99; RESP 18–24; TEMP 97.4–98.4; O2SAT 92–94
--- NOTE | 2016-10-19 01:37 | HHI.CCPN ---
Subjective Remarks/Hospital Course 65-year-old male that presented to the ED with progressive dyspnea. for the past month. The patient is S/P right total knee arthroplasty June 2016. At that point in time, the patient was prescribed and instructed to take 325 mg aspirin twice a day which he complied with until August 2016. In August 2016 , the patient began his normal regimen of 81 mg aspirin daily. The patient subsequently went on a few long car trips September 2016 to [place] and [facility], and [place] The patient was noted to begin to have symptoms at that time post traveling which has progressively worsened early this a.m.. The patient presented to an outpatient emergency center and then was sent to [place] ED. The patient was noted to be dyspneic with a room air O2 sat of 88%, O2 saturation improved with 2 L nasal cannula to 9596%. The patient was hemodynamically stable SBP 140's. Imaging studies were performed ultrasound revealing a right common femoral and popliteal nearly totally occlusive DVT's. CT PE protocol was noted fairly extensive thrombosis bilateral pulmonary arteries with central embolus right upper,right middle and right lower lobe ,as well as left upper and and lower lobes, left greater than right. The patient's respiratory status progressively worsened requiring him to present to an emergency room the patient has remained hemodynamically stable , no accessory muscle use ,no dyspnea on 2 L nasal cannula with O2 saturation 95 %. Interventional radiology was consult by , and due to the bilateral presentation of pulmonary embolus no intervention was considered. Critical care medicine is consult for management and treatment of bilateral pulmonary embolus. Subjective: 10/18: No issues overnight. Systolic blood pressure remained in the 130s to 140s. Heart rate in the 70s. Troponin level during the evening was noted to be increased from 0.062 0.10. BNP was obtained 231. Echo was performed ejection fraction 55%, the RV was moderately dilated tricuspid valves was noted to have mild regurgitation. Discussed with patient the risk and benefits for low-dose TPA at this time, to include the risk of hemorrhage and bleeding/ hemorrhage approximately 7%. The patient's major surgery was of right total knee arthroplasty done in June 2016, other major surgeries since then. Patient denies any risks/history or trauma for bleeding. Tentative plan to initiate low-dose TPA. 10/19: s/p low-dose systemic TPA. no bleeding complications noted. hgb stable. no clinical change. Objective Vital Signs Date Time Temp Pulse Resp B/P Pulse Ox O2 Delivery O2 Flow Rate FiO2 10/19/16 00:00 81 10/18/16 21:32 95 Nasal Cannula 3.00 10/18/16 20:00 97.9 24 124/65 Intake and Output 10/18/16 10/18/16 10/19/16 08:00 16:00 00:00 Intake Total 906 ml 1262 ml 755 ml Output Total 800 ml 1200 ml 600 ml Balance 106 ml 62 ml 155 ml Result Diagram: 10/17/16 1005 10/17/16 1005 Imaging Last Impressions Lower Extremity Ultrasound 10/17/16958 Signed Impressions: Service Date/Time: Monday, October 17, 2016 10:19 - CONCLUSION: Acute thrombus at the right common femoral and popliteal veins. This is nearly totally occlusive. Jax Fragoso MD Chest X-Ray 10/17/16958 Signed Impressions: Service Date/Time: Monday, October 17, 2016 10:56 - CONCLUSION: No acute disease. Jax Fragoso MD CT Angiography 10/17/16958 Signed Impressions: Service Date/Time: Monday, October 17, 2016 11:19 - CONCLUSION: Fairly extensive pulmonary emboli. Jax Fragoso MD Objective Remarks GENERAL: obese male, currently on 2 L nasal cannula in no acute distress HEAD: Atraumatic. Normocephalic. EYES: Pupils equal and round. No scleral icterus. No injection or drainage. ENT: No nasal bleeding or discharge. Mucous membranes pink and moist. NECK: Trachea midline. No JVD. CARDIOVASCULAR: Normal rate, regular rhythm, NSR by tele, rate in 80s. RESPIRATORY: No accessory muscle use. Clear to auscultation. Breath sounds equal bilaterally. GASTROINTESTINAL: Abdomen soft, protuberant, non-tender, nondistended. No guarding. MUSCULOSKELETAL: Extremities without clubbing, cyanosis, or edema. No obvious deformities. NEUROLOGICAL: Awake and alert. RASS 0. No gross focal/sensory deficits. Follows commands in all 4 extremities. A/P Assessment and Plan Assessment: 65yM with sub-massive pulmonary embolism, now s/p low-dose systemic TPA. Clinically improving. would plan to increase back to full-dose anticoagulation 24h post TPA (around 1pm today). Will start to mobilize patient as well after 24h post-TPA. Likely remain in the ICU for another 12- 24h. Plan by systems: Neurologic: Pain Status post right total knee arthroplasty-acetaminophen 650 mg 6 hours when necessary Neurochecks per ICU protocol Respiratory: Bilateral pulmonary embolus CT PEfairly extensive thrombus pulmonary arteries bilateral. Includes central embolus right upper and right middle right lower lobe. Thrombus left upper and left lower lobe left greater than right. Continue heparin drip with PE protocol. increase heparin back to full-dose anticoagulation at 1pm. Monitor PTT per PE protocol s/p low-dose TPA 50mg on 10/18. OOB and ambulating with assistance, PT consult after 1pm. Cardiovascular: Maintain MAP > 65 mmHg greater than 65 Echo 10/17-ejection fraction 55% RV mildly dilated tricuspid valve mild regurgitation, Renal: -- Strict I/Os FEN/GI: Monitor BMP Heart healthy diet Bowel regimen Heme/ID: Monitor CBC Endocrine: Sliding-scale insulin per ICU protocol -- SSI Prophylaxis: GI Prophylaxis Pepcid twice a day DVT Prophylaxis -- No SCDs Heparin infusion Lines: Peripheral IVs 2. Central line if indicated Dispo: remain in the ICU today. The plan is for transition to Coumadin via pharmacy consultation post 48 hours of tPA administration, to start tomorrow. Orthopedic surgeon aware: [facility],(patient's surgeon) Dr. Alonzo Mullins [phone]. Hai Carroll MD Oct 19, 2016 01:37
[2016-10-19] MEDS: RESP: ALBUTEROL 2.5 MG/IPRATROPIUM 0.5 MG NEB (SCH) INH ×2 (03:32→09:59)
[2016-10-19 03:41] LABS: HEMATOCRIT 43.3 % (39.0-51.0); MEAN CORPUSCULAR HEMOGLOBIN 30.2 PG (27.0-34.0); MEAN CORPUSCULAR HGB CONC 33.2 % (32.0-36.0); PLATELET COUNT 153 TH/MM3 (150-450); RED BLOOD COUNT 4.76 MIL/MM3 (4.50-5.90); RED CELL DISTRIBUTION WIDTH 14.6 % (11.6-17.2); REVIEW FLAG FINAL; WHITE BLOOD COUNT 7.5 TH/MM3 (4.0-11.0)
[2016-10-19 03:50] LABS: APTT (PATIENT) 30.9 SEC (24.3-30.1)
[2016-10-19] MEDS: CHLORHEXIDINE GLUCONATE 2 % 1 PACK (2 CLOTHS) TOP SCH (04:00)
[2016-10-19 04:03] LABS: BICARBONATE 25.4 MEQ/L (21.0-32.0); POTASSIUM 4.4 MEQ/L (3.5-5.1)
[2016-10-19] MEDS: SODIUM CHLOR 0.9% 1000 ML INJ 1,000 ML IV SCH (04:26)
[2016-10-19] MEDS: HEPARIN SODIUM - IV 10,000 UNITS/10 ML VIAL IV PRN (04:26)
[2016-10-19] MEDS: INSULIN NovoLIN REGULAR SUPPLEMENTAL SCALE SQ SCH (06:28)
[2016-10-19] MEDS: FAMOTIDINE 20 MG TAB PO SCH (08:48)
[2016-10-19] MEDS: DOCUSATE SODIUM 50 MG/SENNA 8.6 MG TAB PO SCH (08:48)
[2016-10-19 10:52] LABS: APTT (PATIENT) 27.4 SEC (24.3-30.1)
[2016-10-19] MEDS ORDERED: ETOMIDATE 40 MG/20 ML VIAL ONE (14:48)
[2016-10-19] MEDS ORDERED: EPINEPHrine HCL (1:1000) 1 MG/ML VIAL ONE (15:22)
[2016-10-19 15:53] LABS: BLOOD GAS VENOUS BASE EXCESS -4.2 mmol/L (-2-2); BLOOD GAS VENOUS HCO3 21 mmol/L (22-26); BLOOD GAS VENOUS O2 CONTENT 14.3 Vol % (9.0-17.0); BLOOD GAS VENOUS O2 HGB SAT 64 % (70-76); BLOOD GAS VENOUS PCO2 38 mmHg (44-48); BLOOD GAS VENOUS PO2 37 mmHg (35-40); BLOOD GAS VENOUS pH 7.35 (7.360-7.400); TEMP CORR TO 98.6
[2016-10-19 15:54] LABS: CRITICAL VALUE NO; DRAW SITE RN; FIO2 100 %; OXYGEN DEVICE MASK; STAT YES
[2016-10-19 15:56] LABS: BLOOD GAS VENOUS BASE EXCESS -24.3 mmol/L (-2-2); BLOOD GAS VENOUS HCO3 8 mmol/L (22-26); BLOOD GAS VENOUS O2 CONTENT 13.1 Vol % (9.0-17.0); BLOOD GAS VENOUS O2 HGB SAT 53 % (70-76); BLOOD GAS VENOUS PCO2 71 mmHg (44-48); BLOOD GAS VENOUS PO2 48 mmHg (35-40); CRITICAL VALUE YES; DRAW SITE RN; FIO2 100 %; OXYGEN DEVICE MASK; STAT YES; TEMP CORR TO 98.6
--- NOTE | 2016-10-19 18:28 | HHI.CCPN ---
Subjective Remarks CPR NOTE CODE BLUE was called, at approximately 1444. The family/daughter an ER nurse, noted that after patient immediately sat up in a chair , he became unresponsive .When I entered the room ,the patient was noted to be sitting in a chair, completely unresponsive, cyanotic being 100% ambued with [id number] by respiratory therapist. Nursing staff was able to transfer the patient onto the patient's bed, and onto a backboard. On the bed, initially the patient was in sinus rhythm, IV fluids were placed wide open the patient was noted to have a blood pressure at that time 122/77 however was not oxygenating well 100% O2 and BVM continued. Initially the O2 sat upon entering the room was 70%when the patient was in the sitting position, with 100% ambu in a supine position, was able to bring the O2 sat to 96-97%, momentarily. However the O2 sat continued to deteriorate, and was endotracheally intubated, O2 sats improved 96-97% , but only momentarily. The patient's O2 saturation subsequently continued to decline. The patient went into sinus bradycardia then PEA arrest .CPR continued with ACLS protocol see CODE BLUE sheet. The patient was subsequently went into V. fib and required defibrillation 1 with 200 J, and converted into PEA. No ROSC. The code was terminated at 2353. The family was notified of the events. Objective - Vital Signs Date Time Temp Pulse Resp B/P Pulse Ox O2 Delivery O2 Flow Rate FiO2 10/19/16 10:00 92 Nasal Cannula 3.00 10/19/16 06:00 65 10/19/16 04:00 97.9 24 138/83 Intake and Output 10/18/16 10/18/16 10/19/16 08:00 16:00 00:00 Intake Total 906 ml 1262 ml 755 ml Output Total 800 ml 1200 ml 600 ml Balance 106 ml 62 ml 155 ml Result Diagram: 10/19/16 0324 10/19/16 0324 Other Results Laboratory Tests Test 10/19/16 10/19/16 10/19/16 10:15 14:42 14:57 Activated Partial 27.4 SEC Thromboplast Time (24.3-30.1) Blood Gas Puncture Site RN RN Blood Gas Patient Temperature 98.6 98.6 Venous Blood pH 7.35 6.70 (7.360-7.400) (7.360-7.400) Venous Blood Partial Pressure 38 mmHg (44-48) 71 mmHg (44-48) CO2 Venous Blood Partial Pressure 37 mmHg (35-40) 48 mmHg (35-40) O2 Venous Blood HCO3 21 mmol/L 8 mmol/L (22-26) (22-26) Venous Blood Oxygen Saturation 64 % (70-76) 53 % (70-76) Venous Blood Oxygen Content 14.3 Vol % 13.1 Vol % (9.0-17.0) (9.0-17.0) Venous Blood Base Excess -4.2 mmol/L -24.3 mmol/L (-2-2) (-2-2) Oxygen Delivery Device MASK MASK Blood Gas Inspired Oxygen 100 % 100 % ABG Test 10/19/16 10/19/16 14:42 14:57 Oxygen Delivery Device MASK MASK Blood Gas Inspired Oxygen 100 % 100 % A/P Assessment and Plan PEA arrest B/L Pulmonary embolus S/P TPA and heparin protocol A CODE BLUE was called, after the patient got up out of the bed by/ with physical therapy and sat in a chair. Immediately decompensated, respiratory arrest, subsequent PEA arrest. ACLS protocol initiated, IV fluids given, VBGs drawn with correction, electrolytes assess concurrently for approximately 30 minutes without ROSC. Physician Marcelina Couch MD Oct 19, 2016 18:28
--- NOTE | 2016-10-19 18:31 | PD.PROCEDR ---
Procedure Note Procedure Endotracheal Intubation Diagnosis: Respiratory arrest Indications: Respiratory arrest /Cardiac Arrest Consent: Emergent Anesthesia: N/A Description of the Procedure: The patient was positioned in the sniffing position. Pre-oxygenation was performed using a bivalve mass. Anesthesia was induced via rapid sequence. A glidescope 4 was used for laryngoscopy and a Grade 2 view was obtained. A 8.0 cuffed endotracheal tube was inserted atraumatically through the vocal cords. Confirmation of correct endotracheal tube placement was made by equal and bilateral breath sounds and colorimetric CO2 detection. The endotracheal tube was secured at 24 cm at the teeth. I personally performed the procedure. Marcelina Gupta MD Oct 19, 2016 18:31
--- NOTE | 2016-11-18 19:19 | HHI.DS ---
Summary Note Date of : Oct 19, 2016 Time Of : 15:26 Admission Date Oct 17, 2016 at 11:53 Admitting Diagnosis [place] Pulmonary Embolism, DVT Diagnosis at Time of : (1) DVT (deep venous thrombosis) ICD Code: I82.409 Diagnosis: Principal (2) Pulmonary embolism ICD Code: I26.99 Diagnosis: Principal (3) Acute respiratory failure with hypoxia ICD Code: J96.01 Diagnosis: Principal Brief History 65-year-old male that presented to the ED with progressive dyspnea. for the past month. The patient is S/P right total knee arthroplasty June 2016. At that point in time, the patient was prescribed and instructed to take 325 mg aspirin twice a day which he complied with until August 2016. In August 2016 , the patient began his normal regimen of 81 mg aspirin daily. The patient subsequently went on a few long car trips September 2016 to [place] and [facility], and has a sedentary lifestyle in [place]. The patient was noted to begin to have symptoms at that time post traveling which has progressively worsened early this a.m.. The patient presented to an outpatient emergency center and then was sent to [place] ED. The patient was noted to be dyspneic with a room air O2 sat of 88%, O2 saturation improved with 2 L nasal cannula to 9596%. The patient was hemodynamically stable SBP 140's. Imaging studies were performed ultrasound revealing a right common femoral and popliteal nearly totally occlusive DVT's. CT PE protocol was noted fairly extensive thrombosis bilateral pulmonary arteries with central embolus right upper,right middle and right lower lobe ,as well as left upper and and lower lobes, left greater than right. The patient's respiratory status progressively worsened requiring him to present to an emergency room the patient has remained hemodynamically stable , no accessory muscle use ,no dyspnea on 2 L nasal cannula with O2 saturation 95 %. Interventional radiology was consult by , and due to the bilateral presentation of pulmonary embolus no intervention was considered. Critical care medicine is consult for management and treatment of bilateral pulmonary embolus. History PFSH Past Medical History Diminished Hearing: No Hypertension: Yes Influenza Vaccination: Yes Social History Alcohol Use: No Tobacco Use: No Substance Use: No Allergies-Medications Allergies-Medications (Allergen,Severity, Reaction): Coded Allergies: No Known Allergies (Unverified , 10/17/16) Reported Meds & Prescriptions Reported Meds & Active Scripts Active Reported Micardis (Telmisartan) 40 Mg Tab 40 Mg PO DAILY Aleve (Naproxen Sodium) 220 Mg Tab 440 Mg PO BID PRN Aspirin Low Dose (Aspirin) 81 Mg Chew 81 Mg CHEW DAILY ROS Review of Systems Except as stated in HPI: all other systems reviewed are Neg Imaging Last Impressions Lower Extremity Ultrasound 10/17/16958 Signed Impressions: Service Date/Time: Monday, October 17, 2016 10:19 - CONCLUSION: Acute thrombus at the right common femoral and popliteal veins. This is nearly totally occlusive. aJx Fragoso MD Chest X-Ray 10/17/16958 Signed Impressions: Service Date/Time: Monday, October 17, 2016 10:56 - CONCLUSION: No acute disease. Jax Fragoso MD CT Angiography 10/17/16958 Signed Impressions: Service Date/Time: Monday, October 17, 2016 11:19 - CONCLUSION: Fairly extensive pulmonary emboli. Jax Fragoso MD Hospital Course Subjective: 10/18: No issues overnight. Systolic blood pressure remained in the 130s to 140s. Heart rate in the 70s. Troponin level during the evening was noted to be increased from 0.062 0.10. BNP was obtained 231. Echo was performed ejection fraction 55%, the RV was moderately dilated tricuspid valves was noted to have mild regurgitation. Discussed with patient the risk and benefits for low-dose TPA at this time, to include the risk of hemorrhage and bleeding/ hemorrhage approximately 7%. The patient's major surgery was of right total knee arthroplasty done in June 2016, other major surgeries since then. Patient denies any risks/history or trauma for bleeding. Tentative plan to initiate low-dose TPA. 10/19: s/p low-dose systemic TPA. no bleeding complications noted. hgb stable. no clinical change. CPR NOTE CODE BLUE was called, at approximately 1444. The family/daughter an ER nurse, noted that after patient immediately sat up in a chair , he became unresponsive .When I entered the room ,the patient was noted to be sitting in a chair, completely unresponsive, cyanotic being 100% ambued with [id number] by respiratory therapist. Nursing staff was able to transfer the patient onto the patient's bed, and onto a backboard. On the bed, initially the patient was in sinus rhythm, IV fluids were placed wide open the patient was noted to have a blood pressure at that time 122/77 however was not oxygenating well 100% O2 and BVM continued. Initially the O2 sat upon entering the room was 70%when the patient was in the sitting position, with 100% ambu in a supine position, was able to bring the O2 sat to 96-97%, momentarily. However the O2 sat continued to deteriorate, and was endotracheally intubated, O2 sats improved 96-97% , but only momentarily. The patient's O2 saturation subsequently continued to decline. The patient went into sinus bradycardia then PEA arrest .CPR continued with ACLS protocol see CODE BLUE sheet. The patient was subsequently went into V. fib and required defibrillation 1 with 200 J, and converted into PEA. No ROSC. The code was terminated at 1526. The family was notified of the events. Marcelina Gupta MD Nov 18, 2016 19:19
== END 2016-10-19 15:26 | disposition expired | DRG 176 ==
LOC: NEPC 09:39 → NEDA 11:53 → HIMW 14:35 → HIMN 10-18 13:00
PROVIDERS: ADMIT Anesthesiology; ATTEND Anesthesiology
PROC: 3E03317 Introduction of Other Thrombolytic into Peripheral Vein, Percutaneous Approach (ICD-10-PCS; principal; 2016-10-18)
PROC: 0BH17EZ Insertion of Endotracheal Airway into Trachea, Via Natural or Artificial Opening (ICD-10-PCS; 2016-10-19)
PROC: 5A12012 Performance of Cardiac Output, Single, Manual (ICD-10-PCS; 2016-10-19)
PROC: 5A2204Z Restoration of Cardiac Rhythm, Single (ICD-10-PCS; 2016-10-19)
DX: I26.92 Saddle embolus of pulmonary artery without acute cor pulmonale (principal); I10 Essential (primary) hypertension; I82.411 Acute embolism and thrombosis of right femoral vein; I82.431 Acute embolism and thrombosis of right popliteal vein; I46.9 Cardiac arrest, cause unspecified; I49.01 Ventricular fibrillation; Z79.82 Long term (current) use of aspirin; E66.9 Obesity, unspecified; Z68.39 Body mass index [BMI] 39.0-39.9, adult; Z96.651 Presence of right artificial knee joint
CPT/HCPCS: 31500; 71010; 71275; 80048; 80053; 82435; 82550; 82565; 82805; 82947; 82948; 83735; 83880; 84100; 84132; 84295; 84484; 84520; 85025; 85027; 85610; 85730; 87641; 92950; 93005; 93306; 93971; 94640; 94664; J0171; J1644; J2997; J7030; Q9967